=== PATIENT | female | born 1940 | race Caucasian/White ===

== ENCOUNTER 2018-02-18 05:34 | Inpatient (IN) | payer MEDICARE, BC ==
[~2018-02-18] VITALS: Ht 149.9 cm; Wt 45.2 kg
[~2018-02-18 05:34] MED LIST: ATRO1SOL11 RIGHT EYE; CALC500T37 PO; CHOL5000 PO; TIMO0.2517 LEFT EYE; TRAV0.00 LEFT EYE; TYLETAB34 PO; XARE15TA PO
[2018-02-18] MEDS ORDERED: ceFAZolin 2 GM PREMIX 50 ML IV SCH ×2 (06:30→15:00)
[2018-02-18] MEDS ORDERED: CHLORHEXIDINE GLUCONATE 4% SOLN 120 ML BTL TOPICAL SCH (06:30)
[2018-02-18] MEDS ORDERED: CHLORHEXIDINE GLUCONATE 2 % 1 PACK (2 CLOTHS) TOPICAL PRN (06:30)
[2018-02-18] MEDS ORDERED: VANCOMYCIN 1000 MG/NS 250 ML (for <70 kg) IV SCH ×2 (06:30)
[2018-02-18] MEDS ORDERED: POVIDONE IODINE 5% (ANTISEPSIS KIT) 4 APPLICATIONS EACH NARE PRN (06:30)
[2018-02-18] MEDS ORDERED: LACTATED RINGER'S 1000 ML IV PRN (06:30)
[2018-02-18] MEDS ORDERED: METOPROLOL TARTRATE 25 MG TAB PO PRN (06:30)
[2018-02-18] MEDS ORDERED: SODIUM CHLORID 0.9% 500 ML IV PRN (06:30)
[2018-02-18] MEDS ORDERED: MIDAZOLAM HCL 2 MG/2 ML VIAL ONE (07:32)
--- NOTE | 2018-02-18 08:12 | PD.RAD ---
Post Procedure Progress Note Pre Procedure Diagnosis: (1) Closed left hip fracture Post Procedure Diagnosis: (1) Closed left hip fracture Procedure Date: February 18, 2018 Supervising Radiologist: Tavo Cavazos Proceduralist/Assist: Suyapa Callahan, RT(R)(), Ray Morris RT(R) Anesthesia: Local, Analgesia, Conscious Sedation Plan of Activity Patient to Unit: SDS Patient Condition: Good See PACS Report for procedural detail/treatment Vascular-Venous Procedure Procedure 1 Procedure Site: Abdominal Procedure(s): Permanent IVC Filter Access Access Site(s): Right Jugular Vein Closure Site(s): Right manual pressure Findings: Infrarenal VenaTech filter Tavo Cavazos MD February 18, 2018 08:12
[2018-02-18] MEDS ORDERED: IOHEXOL 350 MG/ML 50 ML BTL (for RAD DIAG) IVCONTRAST ONE (08:25)
--- NOTE | 2018-02-18 08:35 | RADRPT ---
EXAM DATE/TIME: 02/18/2018 08:09 [facility] COMPARISON: No previous studies available for comparison. INDICATIONS : Patient with a history of DVT, needs IVC filter for pre-op left hip surgery. MEDICAL HISTORY : DVT GERD Arthritis SURGICAL HISTORY : Left femur rods Right eye surgery ENCOUNTER: Initial ACUITY: 1 week PAIN SCORE: 4/10 LOCATION: Left hip FLUORO TIME: 2.0 minutes IMAGE SERIES: 2 ACCESS SITE: Right Internal jugular vein SEDATION TIME: 30 minutes CONTRAST: 1.) 15 cc Omnipaque (iohexol) 350 MEDICATION(S): 1.) 1.5 mg midazolam (Versed) IV 2.) 75 mcg fentanyl (Sublimaze) IV DEVICE(S): 1.) Inferior vena cava B Koehler Venatech filter PROCEDURE : 1. Ultrasound-guided venipuncture. 2. Inferior venacavogram. 3. Inferior vena cava filter placement. 4. Conscious sedation with continuous EKG and oximetry monitoring. The risks, benefits and alternatives to the procedure were explained and verbal and written consent w as obtained. The site was prepped in sterile fashion. Full sterile technique was used, including ca p, mask, sterile gloves and gown and a large sterile sheet. Hand hygiene and 2% chlorhexidine and/or betadine/alcohol prep was utilized per protocol for cutaneous antisepsis. Sterile gel and sterile p robe cover were utilized for ultrasound guidance. The skin and subcutaneous tissues were infiltrated with local anesthetic solution. With ultrasound and fluoroscopic guidance the targeted vein was punctured and a vascular sheath was p laced. Inferior venacavogram was performed to demonstrate level of renal veins. No caval thrombus was identified. The prescribed filter was deployed in the infrarenal inferior vena cava. Following deplo yment the filter was identified in good position. Conscious sedation was performed with the prescribed dosages and duration as above in the presence of an independent trained radiology nurse to assist in the monitoring of the patient. EKG and oximetry remained stable throughout the procedure. The patient tolerated the procedure well and there were n o complications. The patient was sent to post anesthesia recovery in stable condition. CONCLUSION: Uncomplicated inferior vena cava filter placement as above. Tavo Cavazos MD on February 18, 2018 at 8:33 Board Certified Radiologist. This report was verified electronically.
[2018-02-18] MEDS ORDERED: HYDR-3583 PO (08:51)
[2018-02-18] MEDS ORDERED: XARE15TA PO (08:54)
[2018-02-18] MEDS ORDERED: VANCOMYCIN HCL 1000 MG VIAL ONE ×2 (09:06→09:08)
[2018-02-18] MEDS ORDERED: ceFAZolin INJ 1,000 MG VIAL ONE (09:07)
[2018-02-18] MEDS ORDERED: HEPARIN SODIUM - SQ 10,000 UNITS/ML VIAL ONE (09:08)
[2018-02-18] MEDS ORDERED: GENTAMICIN SULFATE 80 MG/2 ML VIAL ONE (09:08)
[2018-02-18] MEDS ORDERED: TRANEXAMIC ACID INJ 710 MG in SODIUM CHLORIDE 0.9% INJ 100 ML IV ONE (10:00)
[2018-02-18] MEDS ORDERED: diphenhydrAMINE HCL 25 MG CAP PO PRN (11:45)
[2018-02-18] MEDS ORDERED: NALOXONE HCL 0.4 MG/ML AMP IV PUSH PRN (11:45)
[2018-02-18] MEDS ORDERED: Post-op Orders (for Pharmacy) XX ONE (11:45)
[2018-02-18] MEDS ORDERED: ONDANSETRON ODT 4 MG TAB PO PRN (11:45)
--- NOTE | 2018-02-18 11:49 | PD.OP ---
cc: Eugene Suárez MD Operative Report Date of Surgery: February 18, 2018 Preoperative Diagnosis: Displaced left femoral neck fracture, retained hardware left hip Postoperative Diagnosis: Procedure: Removal of deep hardware, conversion to left hip replacement Anesthesia: General Surgeon: Eugene Suárez Zipper Trimmer(s): ALAN Rosario PA-C The surgical procedure was assisted by my physician laboratory assistant. My P.A. presence was necessary throughout this case for the manipulation and positioning of the surgical extremity. My P.A. was assisting me throughout the duration of this procedure. The skill set of a physician laboratory assistant was medically necessary to complete this procedure. During the surgical case the neurosurgical physician assistant was working at the back table and the physician laboratory assistant was directly assisting me. Operation and Findings: Weight bear as tolerated. DRAINS: 7-mm ELA drain. IMPLANTS USED BackTypeuy uSharelaim 75 mm x 20 mm proximal body, 15 mm x 190 mm stem with a size 28+1 metal head, 44 mm by centric cup DETAILS OF PROCEDURE: This patient has a 3 month history of hip pain. She was found to have a chronic left femoral neck fracture. She previously had a left proximal femur fracture treated with intramedullary nail fixation. I had a lengthy discussion regarding the risk and benefits of surgery with patient and her family. The patient wished to proceed with surgery and informed consent was obtained. Operative site was marked. Patient was brought to OR and placed on OR table. IV sedation and general anesthesia was administered by anesthesiologist. Patient was positioned lateral on the operating room table and was given IV antibiotics. Time-out procedure was performed. The operative hip and leg were prepped with alcohol followed by Hibiclens and draped in the usual sterile fashion. Clean Air Suite was used for this procedure. The procedure began with a 6-inch incision over the posterolateral thigh. Subcutaneous tissue was dissected with Bovie. The fascia of the iliotibial band was incised. Gluteus muscle was split in line with fibers. Charnley retractor was placed. At this point attention was turned towards removal of the intramedullary nail. The proximal screw was identified. Using the appropriate screwdriver from the universal screw removal set the proximal screw was removed. A 1 cm incision was made of the distal screw. The screw head was identified. At this point the proximal end of the nail is also identified. Bone was debrided around the proximal end of the nail. The insertion handle screwed into the femoral nail. The distal screw was now removed. The nail was now back slapped and removed. Fluoroscopy confirmed appropriate removal of hardware. The previous proximal femur fracture appeared to be healed. Next attention was turned towards exposure of the hip. Piriformis and external rotator muscles were identified and then released from the posterior femur. The hip capsule was incised and sutures were placed to help retract the capsule. At this point the femoral head and femoral neck fracture were identified. With soft tissue protected, oscillating saw was used to make a cut through the remaining femoral neck, the femoral head was now removed. The femoral head was sized and found to be size 44. At this point attention was turned towards preparation of the proximal femur. Retractors were placed around the proximal femur to allow for exposure. A box osteotome was used to remove the lateral cortex of the femoral neck. Canal finder was used to create a path down the canal. Next, the canal was sequentially reamed until there was an excellent fit. A long revision style stem was utilized because of patient's pre-existing osteoporosis with previous proximal femur insufficiency fracture. The size 15 reamer was left in place. The post was screwed into the reamer. The proximal segment was now reamed for a 20 mm body. A trial body was now placed onto the stem. A standard head and neck were placed. The hip was again reduced. Patient was noted to have a shallow acetabulum with some instability of her hip despite religious of leg length. At this point attention was turned back towards the acetabulum. The acetabulum was exposed. Soft tissue was retracted. The acetabulum was sequentially reamed up to size 44. The acetabulum was deepened to a 3 mm to improve the fit of the by bicentric femoral head. The trial femoral head was placed again. The hip was again reduced. Clinically leg lengths were equal. Patient had good range of motion with good stability. At this point the trial components were removed. A 15 mm x 190 mm stem was now opened. The stem was now impacted in the femoral shaft. Next the 75 mm x 20 mm proximal body was placed onto the stem. These 2 components were compressed appropriately. Care was taken to keep appropriate anteversion. The bolt was now placed proximally and tensioned appropriately. A 44 millimeter bicentric femoral head with +1 neck was now impacted onto the stem. The hip was reduced. Patient had good range of motion with good stability. Clinically leg lengths were equal. Fluoroscopy revealed well placed hip replacement. The wound was thoroughly irrigated. Hip capsule, external rotators, and iliotibial band was closed with #1 Vicryl. A drain was placed deep into the wound. Subcutaneous tissue was closed with 3-0 Vicryl and the skin was closed with drew and Dermabond skin closure. Dressings were applied. The patient was transferred to Recovery Room in stable condition. Eugene Suárez MD February 18, 2018 11:49
[2018-02-18] MEDS ORDERED: ONDANSETRON HCL 4 MG/2 ML VIAL IV PUSH ONE (12:00)
[2018-02-18] MEDS ORDERED: LIDOCAINE HCL 1% PF 5 ML SYRINGE OTHER ONE (12:00)
[2018-02-18] MEDS ORDERED: ROCURONIUM INJ 50 MG/5 ML SYRINGE IV PUSH ONE (12:00)
[2018-02-18] MEDS ORDERED: METOPROLOL TARTRATE 5 MG/5 ML VIAL IV ONE (12:00)
[2018-02-18] MEDS ORDERED: PROPOFOL 200 MG/20 ML AMP IV ONE (12:00)
[2018-02-18] MEDS ORDERED: ePHEDrine/NS 25 MG/5 ML SYRINGE IV ONE (12:00)
[2018-02-18] MEDS ORDERED: GLYCOPYRROLATE 1 MG/5 ML SYRINGE IV PUSH ONE (12:00)
[2018-02-18] MEDS ORDERED: PHENYLEPH/NS 1000 MCG/10 ML SYR IV ONE (12:00)
[2018-02-18] MEDS ORDERED: NEOSTIGMINE 5 MG/5 ML SYRINGE IV PUSH ONE (12:00)
--- NOTE | 2018-02-18 12:27 | PD.ORT.PN ---
Subjective Subjective Remarks POD 0 s/p removal of IMN with conversion to revision hemiarthroplasty stable in PACU. noted to have one pupil dilated when waking from anesthesia. Objective Vitals Vital Signs Date Time Temp Pulse Resp B/P (MAP) Pulse Ox O2 Delivery O2 Flow Rate FiO2 02/18/18 06:36 97.8 65 16 180/61 (100) 96 I/O 02/17/18 02/17/18 02/17/18 02/18/18 02/18/18 02/18/18 07:00 15:00 23:00 07:00 15:00 23:00 Intake Total 1400 ml Output Total 300 ml Balance 1100 ml Intake Other 1400 ml Output Estimated Blood Loss 300 ml Imaging Last 24 hours Impressions IVC Filter Placement X-Ray 02/18/18 0000 Signed Impressions: Service Date/Time: Sunday, February 18, 2018 08:09 - CONCLUSION: Uncomplicated inferior vena cava filter placement as above. Tavo Cavazos MD Objective Remarks LLE: dressings clean and dry. intact. +CKS Assessment & Plan Assessment and Plan 1) Left Periprosthetic Femoral Neck Fx s/p removal of IMN with conversion to revision stem hemiarthroplasty - POD 0 -50%WB -posterior hip precautions -knee brace while in bed -DVT prophylaxis. patient has diagnosed DVT and IVC filter placed this AM. restart home dose Xarelto 15mg -daily dressing changes with primapore on POD 2; perneo surgical mesh tape to remain on incision at all times -CM for rehab placement -f/u with Umer or JESSICA in 2 weeks -neuro and Hospitalist consulted for dilated pupil and medical mgmt Gurpreet Ny/Expanded Function Dental Assistant JESSICA February 18, 2018 12:26
[2018-02-18] MEDS ORDERED: DO NOT ADM ANY ANTICOAGULANT DRUGS PRN (12:30)
[2018-02-18] MEDS ORDERED: *morphine SULFATE 4 MG/ML PERIprocedure ONLY ONE ×2 (12:37→12:53)
--- NOTE | 2018-02-18 12:47 | RADRPT ---
EXAM DATE/TIME: 02/18/2018 11:17 [facility] COMPARISON: No previous studies available for comparison. INDICATIONS : Bi polar placement left hip and femur. MEDICAL HISTORY : None. SURGICAL HISTORY : None. ENCOUNTER: Subsequent ACUITY: 1 day PAIN SCORE: Non-responsive. LOCATION: Left Hip and femur. CONCLUSION: Fluoroscopic image during left hip arthroplasty including intra-medullary aomr left femur. Abram Craig MD on February 18, 2018 at 12:45 Board Certified Radiologist. This report was verified electronically.
[2018-02-18 13:01] LABS: HEMOGLOBIN 10.1 GM/DL (11.6-15.3)
[2018-02-18 14:00] VITALS: BP 113/56; PULSE 94; RESP 16; TEMP 97.3; O2SAT 99
--- NOTE | 2018-02-18 14:02 | RADRPT ---
EXAM DATE/TIME: 02/18/2018 12:59 [facility] COMPARISON: No previous studies available for comparison. INDICATIONS : Post-op left hip replacement. MEDICAL HISTORY : Arthritis. Gastroesophageal reflux disease. SURGICAL HISTORY : section. ENCOUNTER: Subsequent ACUITY: 1 day PAIN SCORE: Non-responsive. LOCATION: Left hip. FINDINGS: Patient is status post left hip arthroplasty. Components appear well-seated. There is subcutaneous ai r at the left hip region. Previous amor and screw fixation across the right proximal femur is noted. CONCLUSION: Postoperative changes left hip arthroplasty. Pedrito Knight MD on February 18, 2018 at 14:00 Board Certified Radiologist. This report was verified electronically.
[2018-02-18 14:58] LABS: BICARBONATE 26.2 MEQ/L (21.0-32.0); CALCIUM 7.7 MG/DL (8.5-10.1); CREATININE 0.57 MG/DL (0.50-1.00)
[2018-02-18 16:00] VITALS: BP 135/63; PULSE 96; RESP 16; TEMP 98; O2SAT 97
--- NOTE | 2018-02-18 16:22 | OTSOAPIP ---
TIME SESSION COMPLETED: 1530 TREATMENT TIME: 0 MINS. CHART REVIEWED. ATTEMPTED TO SEE FOR OT ASSESSMENT. PATIENT WAS ADMITTED TODAY WITH HIP FRACTURE AND UNDERWENT REMOVAL OF IM NAIL AND CONVERSION TO HEMIARTHROPLASTY OF THE HIP. PATIENT IS WAITING TO UNDERGO CT OF THE BRAIN DUE TO DILATED PUPIL. NEURO CONSULT PENDING. WILL WAIT UNTIL 02/19/2018. . Therapist: ANNIE MENDOZA OT/L Signature on file
--- NOTE | 2018-02-18 16:40 | RADRPT ---
EXAM DATE/TIME: 02/18/2018 16:08 [facility] COMPARISON: No previous studies available for comparison. INDICATIONS : Cephalgia. RADIATION DOSE: 34.24 CTDIvol (mGy) MEDICAL HISTORY : Cardiovascular disease. SURGICAL HISTORY : None. ENCOUNTER: Initial ACUITY: 1 day PAIN SCALE: 5/10 LOCATION: cranial TECHNIQUE: Multiple contiguous axial images were obtained of the head. Using automated exposure control and adj ustment of the mA and/or kV according to patient size, radiation dose was kept as low as reasonably a chievable to obtain optimal diagnostic quality images. DICOM format image data is available electro nically for review and comparison. FINDINGS: CEREBRUM: The ventricles are normal for age. No evidence of midline shift, mass lesion, hemorrhage or acute in farction. No extra-axial fluid collections are seen. POSTERIOR FOSSA: The cerebellum and brainstem are intact. The 4th ventricle is midline. The cerebellopontine angle i s unremarkable. EXTRACRANIAL: The visualized portion of the orbits is intact. SKULL: The calvaria is intact. No evidence of skull fracture. CONCLUSION: Normal examination for a patient of this age. Pedrito Knight MD on February 18, 2018 at 16:38 Board Certified Radiologist. This report was verified electronically.
--- NOTE | 2018-02-18 16:49 | PD.CONS ---
History of Present Illness Service Neurology Consult Requested By ortho Reason for Consult confusion Primary Care Physician Michelle Limon M.D. History of Present Illness 78-year-old female admitted for left hip surgery, with history of left femoral neck fracture. Postop apparently noted below but confused dilated right pupil neurology consult for further evaluation. Patient denies any headache fever chills. She had recent surgery for right glaucoma and has been using eyedrops which have not been dilating her eyes.. She denies any history of seizure or TIA or stroke. Review of Systems Except as stated in HPI: all other systems reviewed are Neg/and admit hp Past Family Social History Allergies: Coded Allergies: acetaminophen (Verified Allergy, Unknown, 02/18/18) ALLERGY PER PT SON oxycodone (Verified Allergy, Unknown, 02/18/18) ALLERGY PER PT SON Past Medical History Glaucoma History of right eye surgery 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 Osteoarthritis History of wrist fracture Hypertension GERD Past Surgical History Left femoral necks fracture repair Right eye surgery for cataract IVC filter placement today Bilateral femur amor Reported Medications Reported Meds & Active Scripts Active Xarelto (Rivaroxaban) 15 Mg Tab 15 Mg PO Q12HR 30 Days Hydrocodone-Acetaminophen 10-325 mg Tab 1 Tab PO Q4H PRN Reported Travatan Z Opth Drops (Travoprost) 0.004 % Soln 1 Drop LEFT EYE HS Atropine Opth Drops 1% Soln 1 Drop RIGHT EYE DAILY Timolol Maleate (Timolol Maleate (Ophth)) 0.25 % Lesvia 1 Drop LEFT EYE BID Calcium Ascorbate 500 Mg Tab 500 Mg PO DAILY Vitamin D3 (Cholecalciferol) 5,000 Unit Cap 5,000 Units PO DAILY Tylenol-Codeine #3 (Acetaminophen-Codeine) 300-30 mg Tab 1 Tab PO Q6H PRN Family History Denies any issues other than hypertension Social History Denies any tobacco, alcohol, or illicit Review of Systems All other ROS: ROS reviewed as documented in chart Past Family Social History Allergies: Coded Allergies: acetaminophen (Verified Allergy, Unknown, 02/18/18) ALLERGY PER PT SON oxycodone (Verified Allergy, Unknown, 02/18/18) ALLERGY PER PT SON Active Ordered Medications Current Medications Medications (Trade) Dose Ordered Sig/Carey Route Start Time Stop Time Status Last Admin Lactated Ringer's 1,000 ml @ 30 mls/hr Q24H PRN IV 02/18/18 06:30 02/21/18 06:29 02/18/18 06:43 Sodium Chloride 500 ml @ 30 mls/hr [id number] PRN IV 02/18/18 06:30 02/21/18 06:29 (Lopressor) 25 mg [employer] PRN PO 02/18/18 06:30 02/21/18 06:29 (Betadine 5% Antisepsis Kit) 1 applic [employer] PRN EACH NARE 02/18/18 06:30 02/21/18 06:29 02/18/18 06:42 (Chlorhexidine 2% Cloth) 3 pack [employer] PRN TOPICAL 02/18/18 06:30 02/21/18 06:29 02/18/18 06:42 (Hibiclens 4% Top Soln) 1 applic ONCE TOPICAL 02/18/18 06:30 02/21/18 06:29 02/18/18 06:43 Cefazolin Sodium/ Dextrose 50 ml @ 100 mls/hr [employer] IV 02/18/18 06:30 02/18/18 21:00 Vancomycin HCl 1000 mg/Sodium Chloride 250 ml @ 250 mls/hr [employer] IV 02/18/18 06:30 02/18/18 21:00 (Narcan Inj) 0.4 mg UNSCH PRN IV PUSH 02/18/18 11:45 (Benadryl) 25 mg Q6H PRN PO 02/18/18 11:45 (Xarelto) 10 mg Q24H PO 02/19/18 11:30 ([place] 7.5-325 Mg) 1 tab Q3H PRN PO 02/18/18 15:00 ([place] 10-325 Mg) 1 tab Q3H PRN PO 02/18/18 15:00 (Zofran Odt) 4 mg Q6H PRN PO 02/18/18 11:45 (Colace) 100 mg BID PO 02/19/18 21:00 Vancomycin HCl 1000 mg/Sodium Chloride 250 ml @ 250 mls/hr Q12H IV 02/18/18 22:00 02/18/18 22:59 ([facility] [place] [facility] [place] ALL NURSING DEPARTME... UNSCH PRN .XX 02/18/18 12:30 02/19/18 12:29 Cefazolin Sodium 2000 mg/Sodium Chloride 120 ml @ 240 mls/hr Q6H IV 02/18/18 16:00 02/19/18 04:29 Exam I&O / VS 02/18/18 02/18/18 02/19/18 15:00 23:00 07:00 Intake Total 1400 ml Output Total 800 ml Balance 600 ml Other 1400 ml Output Urine Total 500 ml Estimated Blood Loss 300 ml Vital Signs Date Time Temp Pulse Resp B/P (MAP) Pulse Ox O2 Delivery O2 Flow Rate FiO2 02/18/18 14:00 97.3 94 16 113/56 (75) 99 02/18/18 06:36 97.8 65 16 180/61 (100) 96 General: Alert and Oriented, No acute distress Eye: EOMI Respiratory: Non-labored respirations Neurologic: Alert, Oriented Psychiatric: Cooperative, Appropriate mood & affect Exam Comments lert, ox 3, able to name pcp, president, why she is in the hospital, follows, eomi, ou 4.5mm sluggish, os 3-2mm, face sym, no drift, left leg in a brace Review/Management Diagnosis/Plan: (1) Glaucoma ICD Codes: H40.9 - Unspecified glaucoma Status: Chronic Plan: Dilated right pupil secondary to eyedrops and recent glaucoma surgery (2) Encephalopathy ICD Codes: G93.40 - Encephalopathy, unspecified Status: Acute Plan: Appears resolved possibility of postop status, anesthesia (3) Closed left hip fracture ICD Codes: S72.002A - Fracture of unspecified part of neck of left femur, initial encounter for closed fracture Status: Acute Problem Qualifiers (1) Glaucoma: (2) Closed left hip fracture: Qualified Codes: S72.002A - Fracture of unspecified part of neck of left femur , initial encounter for closed fracture Yoni Cabrera MD February 18, 2018 16:49
--- NOTE | 2018-02-18 17:07 | PD.CONS ---
HPI [facility] Consult Requested By DR SOLIMAN Reason for Consult Help with positive DVT status post IVC filter Primary Care Physician Michelle Limon M.D. Diagnoses: History of Present Illness Patient is an 78-year-old female who underwent revision of a displaced left femoral neck fracture and retained hardware of left hip she underwent removal of the deep hardware and conversion to a left hip replacement today by Dr. Soliman. After the procedure, patient was noted to have one eye that was quite dilated and 1 that was normal patient was therefore sent for CAT scan of the head. Patient had a IVC filter placed today due to a lower extremity DVT I believe in the femoral region Patient will full anticoagulation tomorrow with Xarelto. We have been asked to help regarding this DVT and help with the Xarelto and anticoagulation Review of Systems Constitutional: DENIES: Diaphoretic episodes, Fatigue, Fever, Weight gain, Weight loss, Chills, Dizziness, Change in appetite, Night Sweats Endocrine: DENIES: Heat/cold intolerance, Polydipsia, Polyuria, Polyphagia Eyes: DENIES: Blurred vision, Diplopia, Eye inflammation, Eye pain, Vision loss , Photosensitivity, Double Vision Ears, nose, mouth, throat: DENIES: Tinnitus, Hearing loss, Vertigo, Nasal discharge, Oral lesions, Throat pain, Hoarseness, Ear Pain, Running Nose Respiratory: DENIES: Apneas, Cough, Snoring, Wheezing, Hemoptysis, Sputum production, Shortness of breath Cardiovascular: DENIES: Chest pain, Palpitations, Syncope, Dyspnea on Exertion , PND, Lower Extremity Edema, Orthopnea, Claudication Gastrointestinal: DENIES: Abdominal pain, Black stools, Bloody stools, Constipation, Diarrhea, Nausea Genitourinary: DENIES: Abnormal vaginal bleeding, Dysmenorrhea, Dyspareunia Musculoskeletal: COMPLAINS OF: Joint pain, DENIES: Muscle aches, Stiffness, Joint Swelling, Back pain, Neck pain Integumentary: DENIES: Abnormal pigmentation, Pruritus, Rash, Nail changes, Breast masses Hematologic/lymphatic: DENIES: Bruising, Lymphadenopathy Immunologic/allergic: DENIES: Eczema, Urticaria Neurologic: COMPLAINS OF: Abnormal gait, DENIES: Headache, Localized weakness, Paresthesias, Seizures, Speech Problems, Tremor, Poor Balance Psychiatric: DENIES: Anxiety, Confusion, Mood changes, Depression, Hallucinations, Agitation, Suicidal Ideation, Homicidal Ideation, Delusions Except as stated in HPI: all other systems reviewed are Neg Past Family Social History Allergies: Coded Allergies: acetaminophen (Verified Allergy, Unknown, 02/18/18) ALLERGY PER PT SON oxycodone (Verified Allergy, Unknown, 02/18/18) ALLERGY PER PT SON Past Medical History Glaucoma History of right eye surgery 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 Osteoarthritis History of wrist fracture Hypertension GERD Past Surgical History Left femoral necks fracture repair Right eye surgery for cataract IVC filter placement today Bilateral femur amor Reported Medications Reported Meds & Active Scripts Active Xarelto (Rivaroxaban) 15 Mg Tab 15 Mg PO Q12HR 30 Days Hydrocodone-Acetaminophen 10-325 mg Tab 1 Tab PO Q4H PRN Reported Travatan Z Opth Drops (Travoprost) 0.004 % Soln 1 Drop LEFT EYE HS Atropine Opth Drops 1% Soln 1 Drop RIGHT EYE DAILY Timolol Maleate (Timolol Maleate (Ophth)) 0.25 % Lesvia 1 Drop LEFT EYE BID Calcium Ascorbate 500 Mg Tab 500 Mg PO DAILY Vitamin D3 (Cholecalciferol) 5,000 Unit Cap 5,000 Units PO DAILY Tylenol-Codeine #3 (Acetaminophen-Codeine) 300-30 mg Tab 1 Tab PO Q6H PRN Active Ordered Medications Current Medications Lactated Ringer's 1,000 ml @ 30 mls/hr Q24H PRN IV SEE LABEL COMMENTS Last administered on 02/18/18at 06:43; Start 02/18/18 at 06:30; Stop 02/21/18 at 06:29 Sodium Chloride 500 ml @ 30 mls/hr [id number] PRN IV SEE LABEL COMMENTS; Start at 06:30; Stop 02/21/18 at 06:29 Metoprolol Tartrate (Lopressor) 25 mg AERODYNAMICS TEACHER PRN PO SEE LABEL COMMENTS; Start 02/18/18 at 06:30; Stop 02/21/18 at 06:29 Povidone Iodine (Betadine 5% Antisepsis Kit) 1 applic AERODYNAMICS TEACHER PRN EACH NARE SEE LABEL COMMENTS Last administered on 02/18/18at 06:42; Start 02/18/18 at 06:30 ; Stop 02/21/18 at 06:29 Chlorhexidine Gluconate (Chlorhexidine 2% Cloth) 3 pack AERODYNAMICS TEACHER PRN TOPICAL SEE LABEL COMMENTS Last administered on 02/18/18at 06:42; Start 02/18/18 at 06:30 ; Stop 02/21/18 at 06:29 Chlorhexidine Gluconate (Hibiclens 4% Top Soln) 1 applic ONCE TOPICAL Last administered on 02/18/18at 06:43; Start 02/18/18 at 06:30; Stop 02/21/18 at 06:29 Cefazolin Sodium/ Dextrose 50 ml @ 100 mls/hr AERODYNAM[employer] TEACHER IV ; Start 02/18/18 at 06:30; Stop 02/18/18 at 21:00 Vancomycin HCl 1000 mg/Sodium Chloride 250 ml @ 250 mls/hr AERODYNAMICS TEACHER IV ; Start 02/18/18 at 06:30; Stop 02/18/18 at 21:00 Fentanyl Citrate (fentaNYL INJ) 100 mcg STK-MED ONCE .ROUTE Last administered on 02/18/18at 08:05; Start 02/18/18 at 07:31; Stop 02/18/18 at 07:32; Status DC Midazolam HCl (Versed Inj) 2 mg STK-MED ONCE .ROUTE Last administered on at 08:05; Start 02/18/18 at 07:32; Stop 02/18/18 at 07:33; Status DC Iohexol (Omnipaque 350 Inj) 15 ml STK-MED ONCE IVCONTRAST Last administered on 02/18/18at 08:25; Start 02/18/18 at 08:25; Stop 02/18/18 at 08:26; Status DC Vancomycin HCl (Vancomycin Inj) 1,000 mg STK-MED ONCE .ROUTE Last administered on 02/18/18at 09:28; Start 02/18/18 at 09:06; Stop 02/18/18 at 09:07; Status DC Cefazolin Sodium (Ancef Inj) 1,000 mg STK-MED ONCE .ROUTE Last administered on 02/18/18at 09:27; Start 02/18/18 at 09:07; Stop 02/18/18 at 09:08; Status DC Gentamicin Sulfate (Gentamicin Inj) 240 mg STK-MED ONCE .ROUTE Last administered on 02/18/18at 10:00; Start 02/18/18 at 09:08; Stop 02/18/18 at 09:09 ; Status DC Vancomycin HCl (Vancomycin Inj) 1,000 mg STK-MED ONCE .ROUTE ; Start 02/18/18 at 09:08; Stop 02/18/18 at 09:09; Status DC Heparin Sodium (Porcine) (Heparin Inj) 30,000 units STK-MED ONCE .ROUTE ; Start 02/18/18 at 09:08; Stop 02/18/18 at 09:09; Status DC Tranexamic Acid 710 mg/Sodium Chloride 107.1 ml @ 200 mls/hr ONCE ONCE IV ; Start 02/18/18 at 10:00; Stop 02/18/18 at 10:32; Status DC Naloxone HCl (Narcan Inj) 0.4 mg UNSCH PRN IV PUSH RESPIRATORY RATE LESS THAN 10; Start 02/18/18 at 11:45 Diphenhydramine HCl (Benadryl) 25 mg Q6H PRN PO ITCHING; Start 02/18/18 at 11: 45 Cefazolin Sodium/ Dextrose 50 ml @ 100 mls/hr Q6H IV ; Start 02/18/18 at 15:00 ; Stop 02/19/18 at 03:29; Status Cancel Miscellaneous Information (Misc Post-op Orders (for Pharmacy)) STAT ONCE XX ; Start 02/18/18 at 11:45; Stop 02/18/18 at 11:46; Status DC Rivaroxaban (Xarelto) 10 mg Q24H PO ; Start 02/19/18 at 11:30 Acetaminophen/ Hydrocodone Bitart ([place]ora 7.5-325 Mg) 1 tab Q3H PRN PO PAIN 3<6 ; Start 02/18/18 at 15:00 Acetaminophen/ Hydrocodone Bitart ([place]ora 10-325 Mg) 1 tab Q3H PRN PO PAIN 6<10 ; Start 02/18/18 at 15:00 Ondansetron HCl (Zofran Odt) 4 mg Q6H PRN PO NAUSEA OR VOMITING; Start at 11:45 Docusate Sodium (Colace) 100 mg BID PO ; Start 02/19/18 at 21:00 Vancomycin HCl 1000 mg/Sodium Chloride 250 ml @ 250 mls/hr Q12H IV ; Start at 22:00; Stop 02/18/18 at 22:59 Morphine Sulfate (*morphine INJ PERIprocedure ONLY) 4 mg STK-MED ONCE .ROUTE Last administered on 02/18/18at 12:37; Start 02/18/18 at 12:37; Stop 02/18/18 at 12:38; Status DC Fentanyl Citrate (fentaNYL INJ) 100 mcg STK-MED ONCE .ROUTE ; Start 02/18/18 at 12:49; Stop 02/18/18 at 12:50; Status DC Fentanyl Citrate (fentaNYL INJ) 100 mcg STK-MED ONCE .ROUTE ; Start 02/18/18 at 12:49; Stop 02/18/18 at 12:50; Status DC Morphine Sulfate (*morphine INJ PERIprocedure ONLY) 4 mg STK-MED ONCE .ROUTE Last administered on 02/18/18at 12:53; Start 02/18/18 at 12:53; Stop 02/18/18 at 12:54; Status DC Miscellaneous Information ([facility] Nursing Information) ALL NURSING DEPARTME... UNSCH PRN .XX SEE LABEL COMMENTS; Start 02/18/18 at 12:30; Stop 02/19/18 at 12: 29 Cefazolin Sodium 2000 mg/Sodium Chloride 120 ml @ 240 mls/hr Q6H IV ; Start at 16:00; Stop 02/19/18 at 04:29 Family History Denies any issues other than hypertension Social History Denies any tobacco, alcohol, or illicit Physical Exam Vital Signs Vital Signs Date Time Temp Pulse Resp B/P (MAP) Pulse Ox O2 Delivery O2 Flow Rate FiO2 02/18/18 14:00 97.3 94 16 113/56 (75) 99 02/18/18 06:36 97.8 65 16 180/61 (100) 96 Physical Exam GENERAL: This is a well-nourished, well-developed patient, in no apparent distress. SKIN: No rashes, ecchymoses or lesions. Cool and dry. HEAD: Atraumatic. Normocephalic. No temporal or scalp tenderness. EYES: Pupils equal round and reactive RIGHT EYE IS DILATED. Extraocular motions intact. No scleral icterus. No injection or drainage. ENT: Nose without bleeding, purulent drainage or septal hematoma. Throat without erythema, tonsillar hypertrophy or exudate. Uvula midline. Airway patent. NECK: Trachea midline. No JVD or lymphadenopathy. Supple, nontender, no meningeal signs. RIGHT NECK DRESSED CARDIOVASCULAR: Regular rate and rhythm without murmurs, gallops, or rubs. RESPIRATORY: Clear to auscultation. Breath sounds equal bilaterally. No wheezes , rales, or rhonchi. GASTROINTESTINAL: Abdomen soft, non-tender, nondistended. No hepato-splenomegaly , or palpable masses. No guarding. MUSCULOSKELETAL: Extremities without clubbing, cyanosis, or edema. No joint tenderness, effusion, or edema noted. No calf tenderness. Negative Homans sign bilaterally. NEUROLOGICAL: Awake and alert. Cranial nerves II through XII intact. Motor and sensory grossly within normal limits. Five out of 5 muscle strength in all muscle groups. Normal speech. Laboratory Laboratory Tests Test 02/18/18 12:30 02/18/18 13:20 Hemoglobin 10.1 Hematocrit 30.0 Blood Urea Nitrogen 16 Creatinine 0.57 Random Glucose 137 Calcium Level 7.7 Sodium Level 141 Potassium Level 4.0 Chloride Level 108 Carbon Dioxide Level 26.2 Anion Gap 7 Estimat Glomerular Filtration Rate 102 Ammonia 32 Result Diagram: 02/18/18 1230 02/18/18 1320 Imaging Last Impressions Hip and Pelvis X-Ray 02/18/18 1132 Signed Impressions: Service Date/Time: Sunday, February 18, 2018 12:59 - CONCLUSION: Postoperative changes left hip arthroplasty. Pedrito Knight MD IVC Filter Placement X-Ray 02/18/18 0000 Signed Impressions: Service Date/Time: Sunday, February 18, 2018 08:09 - CONCLUSION: Uncomplicated inferior vena cava filter placement as above. Tavo Cavazos MD Femur X-Ray 02/18/18 0000 Signed Impressions: Service Date/Time: Sunday, February 18, 2018 11:17 - CONCLUSION: Fluoroscopic image during left hip arthroplasty including intra-medullary amor left femur. Abram Craig MD Assessment and Plan Assessment and Plan Status post left femoral neck fracture and repair with revision and removal of hardware and conversion to left hemiarthroplasty today Pain control per orthopedic Recent DVT status post IVC filter today start Xarelto tomorrow Uneven pupils possible CVA- CAT scan of head ordered pending results History of glaucoma History of cataract surgery on the right GERD by history which is diet controlled Hypertension not on any current medications Glaucoma by history continue on her drops as at home Code Status Full code Discussed Condition With RN and patient and family in charge Ja aBnerjee DO February 18, 2018 17:07
--- NOTE | 2018-02-18 17:26 | MG ---
cc: Yoni Cabrera MD, Mandeep MD EEG NUMBER [id number] HISTORY: Some confusion, noted to be drowsy during the recording. INTERPRETATION:l Posterior rhythm showing 4-5 Hz theta activity with admixed delta activity 10-30 microvolts. Other vertex waves transition into stage I sleep. No lateralizing features. During arousals background incremented up to 7-8 Hz. Limited driving with photic stimulation. Single lead EKG showing sinus rhythm. IMPRESSION: Mainly sleep electroencephalogram with brief normal wakefulness. Clinical correlation. MD RADHA Guerrero/ , 05:07 PM , 05:26 PM
[2018-02-18] MEDS: CEFAZOLIN INJ 2,000 MG in SODIUM CHLORIDE 0.9% INJ 100 ML IV SCH ×2 (17:59→22:37)
[2018-02-18] MEDS: ACETAMINOPHEN/HYDROcodone 325 MG/7.5 MG TAB PO PRN (19:38)
[2018-02-18 19:57] LABS: AUTOMATED NEUTROPHIL # 6.2 TH/MM3 (1.8-7.7); BASOPHIL % 0.4 % (0.0-2.0); HEMATOCRIT 26.9 % (35.0-46.0); LYMPH % 12.5 % (9.0-44.0); MEAN CELL VOLUME 93.9 FL (80.0-100.0); MEAN CORPUSCULAR HEMOGLOBIN 31.3 PG (27.0-34.0); MEAN CORPUSCULAR HGB CONC 33.4 % (32.0-36.0); MEAN PLATELET VOLUME 7.7 FL (7.0-11.0); MONO % 9.1 % (0.0-8.0); MONOCYTE # 0.7 TH/MM3 (0-0.9); PLATELET COUNT 279 TH/MM3 (150-450); RED BLOOD COUNT 2.87 MIL/MM3 (4.00-5.30); RED CELL DISTRIBUTION WIDTH 13.8 % (11.6-17.2); WHITE BLOOD COUNT 7.9 TH/MM3 (4.0-11.0)
[2018-02-18 20:00] VITALS: BP 118/51; PULSE 108; RESP 18; TEMP 97.2; O2SAT 100
[2018-02-18] MEDS ORDERED: VANCOMYCIN INJ 1,000 MG in SODIUM CHLOR 0.9% 250 ML INJ 250 ML IV SCH (22:00)
[2018-02-19] VITALS (9 sets, daily range): BP systolic 99–126; BP diastolic 50–62; PULSE 96–116; RESP 16–18; TEMP 97.2–98.7; O2SAT 95–99
[2018-02-19] MEDS: ACETAMINOPHEN/HYDROcodone 325 MG/10 MG TAB PO PRN ×7 (00:07→23:39)
[2018-02-19] MEDS: CEFAZOLIN INJ 2,000 MG in SODIUM CHLORIDE 0.9% INJ 100 ML IV SCH (04:08)
[2018-02-19 06:27] LABS: AUTOMATED NEUTROPHIL # 3.4 TH/MM3 (1.8-7.7); BASOPHIL % 0.6 % (0.0-2.0); EOSINOPHIL % 0.8 % (0.0-4.0); HEMATOCRIT 22.3 % (35.0-46.0); HEMOGLOBIN 7.6 GM/DL (11.6-15.3); LYMPH % 31.9 % (9.0-44.0); LYMPHOCYTE # 1.9 TH/MM3 (1.0-4.8); MEAN CELL VOLUME 94.2 FL (80.0-100.0); MEAN CORPUSCULAR HEMOGLOBIN 32.2 PG (27.0-34.0); MEAN CORPUSCULAR HGB CONC 34.1 % (32.0-36.0); MEAN PLATELET VOLUME 7.7 FL (7.0-11.0); MONO % 10.2 % (0.0-8.0); MONOCYTE # 0.6 TH/MM3 (0-0.9); NEUT % 56.5 % (16.0-70.0); PLATELET COUNT 235 TH/MM3 (150-450); RED BLOOD COUNT 2.37 MIL/MM3 (4.00-5.30); RED CELL DISTRIBUTION WIDTH 13.6 % (11.6-17.2)
[2018-02-19 06:51] LABS: ALBUMIN 2.7 GM/DL (3.4-5.0); AST (GOT) 22 U/L (15-37); BICARBONATE 26.6 MEQ/L (21.0-32.0); CALCIUM 7.7 MG/DL (8.5-10.1); CHLORIDE 103 MEQ/L (98-107); CREATININE 0.78 MG/DL (0.50-1.00); GLOMERULAR FILTRATION RATE 71 ML/MIN (>89); GLUCOSE,RANDOM 107 MG/DL (74-106); MAGNESIUM 1.8 MG/DL (1.5-2.5); PHOSPHORUS 3.4 MG/DL (2.5-4.9); SODIUM (NA) 138 MEQ/L (136-145)
[2018-02-19 07:00] LABS: ALKALINE PHOSPHATASE 38 U/L (45-117); FREE T4 1.39 NG/DL (0.76-1.46); TOTAL BILIRUBIN ADULT 0.6 MG/DL (0.2-1.0)
[2018-02-19 07:26] LABS: BLOOD UREA NITROGEN 17 MG/DL (7-18)
[2018-02-19 07:37] LABS: ALT (GPT) 13 U/L (10-53)
--- NOTE | 2018-02-19 09:23 | HHI.PR ---
Review/Management Diagnosis/Plan: (1) Encephalopathy ICD Codes: G93.40 - Encephalopathy, unspecified Status: Acute Plan: Appears resolved possibility of postop status, anesthesia EKG normal CT brain no acute abnormalities Neurologically stable (2) Glaucoma ICD Codes: H40.9 - Unspecified glaucoma Status: Chronic Plan: Dilated right pupil secondary to eyedrops and recent glaucoma surgery (3) Closed left hip fracture ICD Codes: S72.002A - Fracture of unspecified part of neck of left femur, initial encounter for closed fracture Status: Acute Subjective Subjective Comments No acute events reported No headache No chest pain No dyspnea Active Medications Current Medications Medications (Trade) Dose Ordered Sig/Carey Route Start Time Stop Time Status Last Admin Lactated Ringer's 1,000 ml @ 30 mls/hr Q24H PRN IV 02/18/18 06:30 02/21/18 06:29 02/18/18 06:43 Sodium Chloride 500 ml @ 30 mls/hr [id number] PRN IV 02/18/18 06:30 02/21/18 06:29 (Lopressor) 25 mg CASH POSTER PRN PO 02/18/18 06:30 02/21/18 06:29 (Betadine 5% Antisepsis Kit) 1 applic CASH POSTER PRN EACH NARE 02/18/18 06:30 02/21/18 06:29 02/18/18 06:42 (Chlorhexidine 2% Cloth) 3 pack CASH POSTER PRN TOPICAL 02/18/18 06:30 02/21/18 06:29 02/18/18 06:42 (Hibiclens 4% Top Soln) 1 applic ONCE TOPICAL 02/18/18 06:30 02/21/18 06:29 02/18/18 06:43 (Narcan Inj) 0.4 mg UNSCH PRN IV PUSH 02/18/18 11:45 (Benadryl) 25 mg Q6H PRN PO 02/18/18 11:45 (Xarelto) 10 mg Q24H PO 02/19/18 11:30 ([place] 7.5-325 Mg) 1 tab Q3H PRN PO 02/18/18 15:00 02/18/18 19:38 ([place] 10-325 Mg) 1 tab Q3H PRN PO 02/18/18 15:00 02/19/18 06:04 (Zofran Odt) 4 mg Q6H PRN PO 02/18/18 11:45 02/18/18 19:38 (Colace) 100 mg BID PO 02/19/18 21:00 ([facility] [place] Nursing Information) ALL NURSING DEPARTME... UNSCH PRN .XX 02/18/18 12:30 02/19/18 12:29 Allergies Allergies Coded Allergies acetaminophen (Verified Allergy, Unknown, 02/18/18) oxycodone (Verified Allergy, Unknown, 02/18/18) Review of Systems All other ROS: ROS reviewed as documented in chart Exam I&O / VS Vital Signs Date Time Temp Pulse Resp B/P (MAP) Pulse Ox O2 Delivery O2 Flow Rate FiO2 02/19/18 04:00 97.7 98 18 111/53 (72) 99 02/19/18 00:01 97.2 105 18 115/56 (75) 98 02/18/18 20:00 97.2 108 18 118/51 (73) 100 02/18/18 16:00 98.0 96 16 135/63 (87) 97 02/18/18 14:00 97.3 94 16 113/56 (75) 99 02/18/18 13:25 69 16 114/66 (82) 100 Nasal Cannula 2 02/18/18 13:00 61 16 128/55 (79) 100 Nasal Cannula 2 02/18/18 12:45 76 16 140/66 (90) 100 Nasal Cannula 2 02/18/18 12:30 62 16 149/65 (93) 100 Nasal Cannula 2 02/18/18 12:21 96.5 62 16 81/49 (60) 99 Nasal Cannula 2 General: Alert and Oriented, No acute distress Eye: EOMI Respiratory: Non-labored respirations Neurologic: Alert, Oriented Psychiatric: Cooperative, Appropriate mood & affect Exam Comments alert, ox 3, able to name pcp, recognizes me from yesterday, no aphasia pleasant follows, eomi, ou 4.5mm sluggish, os 3-2mm, face sym, no drift, left leg in a brace Objective Micro and Labs Laboratory Tests Test 02/18/18 12:30 02/18/18 13:20 02/18/18 19:32 02/19/18 05:50 Hemoglobin 10.1 9.0 7.6 Hematocrit 30.0 26.9 22.3 Blood Urea Nitrogen 16 17 Creatinine 0.57 0.78 Random Glucose 137 107 Calcium Level 7.7 7.7 Sodium Level 141 138 Potassium Level 4.0 4.3 Chloride Level 108 103 Carbon Dioxide Level 26.2 26.6 Anion Gap 7 8 Estimat Glomerular Filtration Rate 102 71 Ammonia 32 White Blood Count 7.9 6.0 Red Blood Count 2.87 2.37 Mean Corpuscular Volume 93.9 94.2 Mean Corpuscular Hemoglobin 31.3 32.2 Mean Corpuscular Hemoglobin Concent 33.4 34.1 Red Cell Distribution Width 13.8 13.6 Platelet Count 279 235 Mean Platelet Volume 7.7 7.7 Neutrophils (%) (Auto) 78.0 56.5 Lymphocytes (%) (Auto) 12.5 31.9 Monocytes (%) (Auto) 9.1 10.2 Eosinophils (%) (Auto) 0.0 0.8 Basophils (%) (Auto) 0.4 0.6 Neutrophils # (Auto) 6.2 3.4 Lymphocytes # (Auto) 1.0 1.9 Monocytes # (Auto) 0.7 0.6 Eosinophils # (Auto) 0.0 0.0 Basophils # (Auto) 0.0 0.0 CBC Comment DIFF FINAL DIFF FINAL Differential Comment Total Protein 5.0 Albumin 2.7 Phosphorus Level 3.4 Magnesium Level 1.8 Alkaline Phosphatase 38 Aspartate Amino Transf (AST/SGOT) 22 Alanine Aminotransferase (ALT/SGPT) 13 Total Bilirubin 0.6 Free Thyroxine 1.39 Thyroid Stimulating Hormone 3rd Gen 3.190 Problem Qualifiers (1) Glaucoma: (2) Closed left hip fracture: Qualified Codes: S72.002A - Fracture of unspecified part of neck of left femur , initial encounter for closed fracture Yoni Cabrera MD February 19, 2018 09:23
[2018-02-19] MEDS ORDERED: SODIUM CHLOR 0.9% 250 ML INJ 250 ML IV ONE (10:45)
[2018-02-19] MEDS ORDERED: FUROSEMIDE 20 MG/2 ML VIAL IV PUSH ONE (10:45)
[2018-02-19] MEDS: RIVAROXABAN 10 MG TAB PO SCH (11:31)
[2018-02-19] MEDS ORDERED: ATROPINE SULFATE 1% OPHT SOLN 2 ML BTL RIGHT EYE SCH (13:00)
[2018-02-19] MEDS: TIMOLOL MALEATE 0.25% OPHT SOLN 5 ML BTL LEFT EYE SCH ×2 (15:32→20:14)
[2018-02-19] MEDS: ATROPINE SULFATE 1% OPHT SOLN 5 ML BTL RIGHT EYE SCH (15:33)
--- NOTE | 2018-02-19 16:05 | PD.ORT.PN ---
Subjective Subjective Remarks Patient comfortable. Pain controlled. Alert & oriented x 3. Patient states she takes medication for dilation for right eye. Objective Vitals Vital Signs Date Time Temp Pulse Resp B/P (MAP) Pulse Ox O2 Delivery O2 Flow Rate FiO2 02/19/18 12:00 98.1 96 16 126/62 (83) 98 02/19/18 11:40 99 21 02/19/18 08:00 97.9 104 16 108/50 (69) 95 02/19/18 04:00 97.7 98 18 111/53 (72) 99 02/19/18 00:01 97.2 105 18 115/56 (75) 98 02/18/18 20:00 97.2 108 18 118/51 (73) 100 I/O 02/18/18 02/18/18 02/18/18 02/19/18 02/19/18 02/19/18 07:00 15:00 23:00 07:00 15:00 23:00 Intake Total 1400 ml 610 ml Output Total 800 ml 300 ml Balance 600 ml 310 ml Intake Oral 360 ml IV Total 250 ml Other 1400 ml Output Urine Total 500 ml 300 ml Estimated Blood Loss 300 ml # Voids 2 # Bowel Movements 0 Result Diagram: 02/19/18 0550 02/19/18 0550 Imaging Last 24 hours Impressions IVC Filter Placement X-Ray 02/18/18 0000 Signed Impressions: Service Date/Time: Sunday, February 18, 2018 08:09 - CONCLUSION: Uncomplicated inferior vena cava filter placement as above. Tavo Cavazos MD Objective Remarks LLE: dressings clean and dry. intact. +CKS Assessment & Plan Assessment and Plan 1) Left Periprosthetic Femoral Neck Fx s/p removal of IMN with conversion to revision stem hemiarthroplasty - POD 1 - hgb 7.6 patient is scheduled for blood transfusion today -50%WB -posterior hip precautions -knee brace while in bed -DVT prophylaxis. patient has diagnosed DVT and IVC filter placed this AM. restart home dose Xarelto 15mg -daily dressing changes with primapore on POD 2; perneo surgical mesh tape to remain on incision at all times -CM for rehab placement -f/u with [facility] or [facility] in 2 weeks Cheo Soler February 19, 2018 16:05
--- NOTE | 2018-02-19 18:02 | HHI.PR ---
Subjective Remarks Patient sitting up in chair reports feeling fatigued, hgb 7.6 this AM Objective Vitals Vital Signs Date Time Temp Pulse Resp B/P (MAP) Pulse Ox O2 Delivery O2 Flow Rate FiO2 02/19/18 12:00 98.1 96 16 126/62 (83) 98 02/19/18 11:40 99 21 02/19/18 08:00 97.9 104 16 108/50 (69) 95 02/19/18 04:00 97.7 98 18 111/53 (72) 99 02/19/18 00:01 97.2 105 18 115/56 (75) 98 02/18/18 20:00 97.2 108 18 118/51 (73) 100 I/O 02/18/18 02/18/18 02/18/18 02/19/18 02/19/18 02/19/18 07:00 15:00 23:00 07:00 15:00 23:00 Intake Total 1400 ml 610 ml Output Total 800 ml 300 ml Balance 600 ml 310 ml Intake Oral 360 ml IV Total 250 ml Other 1400 ml Output Urine Total 500 ml 300 ml Estimated Blood Loss 300 ml # Voids 2 # Bowel Movements 0 Result Diagram: 02/19/18 0550 02/19/18 0550 Other Results Laboratory Tests Test 02/18/18 12:30 02/18/18 13:20 02/18/18 19:32 02/19/18 05:50 Hemoglobin 10.1 GM/DL 9.0 GM/DL 7.6 GM/DL Hematocrit 30.0 % 26.9 % 22.3 % Blood Urea Nitrogen 16 MG/DL 17 MG/DL Creatinine 0.57 MG/DL 0.78 MG/DL Random Glucose 137 MG/DL 107 MG/DL Calcium Level 7.7 MG/DL 7.7 MG/DL Sodium Level 141 MEQ/L 138 MEQ/L Potassium Level 4.0 MEQ/L 4.3 MEQ/L Chloride Level 108 MEQ/L 103 MEQ/L Carbon Dioxide Level 26.2 MEQ/L 26.6 MEQ/L Anion Gap 7 MEQ/L 8 MEQ/L Estimat Glomerular Filtration Rate 102 ML/MIN 71 ML/MIN Ammonia 32 MCMOL/L White Blood Count 7.9 TH/MM3 6.0 TH/MM3 Red Blood Count 2.87 MIL/MM3 2.37 MIL/MM3 Mean Corpuscular Volume 93.9 FL 94.2 FL Mean Corpuscular Hemoglobin 31.3 PG 32.2 PG Mean Corpuscular Hemoglobin Concent 33.4 % 34.1 % Red Cell Distribution Width 13.8 % 13.6 % Platelet Count 279 TH/MM3 235 TH/MM3 Mean Platelet Volume 7.7 FL 7.7 FL Neutrophils (%) (Auto) 78.0 % 56.5 % Lymphocytes (%) (Auto) 12.5 % 31.9 % Monocytes (%) (Auto) 9.1 % 10.2 % Eosinophils (%) (Auto) 0.0 % 0.8 % Basophils (%) (Auto) 0.4 % 0.6 % Neutrophils # (Auto) 6.2 TH/MM3 3.4 TH/MM3 Lymphocytes # (Auto) 1.0 TH/MM3 1.9 TH/MM3 Monocytes # (Auto) 0.7 TH/MM3 0.6 TH/MM3 Eosinophils # (Auto) 0.0 TH/MM3 0.0 TH/MM3 Basophils # (Auto) 0.0 TH/MM3 0.0 TH/MM3 CBC Comment DIFF FINAL DIFF FINAL Differential Comment Total Protein 5.0 GM/DL Albumin 2.7 GM/DL Phosphorus Level 3.4 MG/DL Magnesium Level 1.8 MG/DL Alkaline Phosphatase 38 U/L Aspartate Amino Transf (AST/SGOT) 22 U/L Alanine Aminotransferase (ALT/SGPT) 13 U/L Total Bilirubin 0.6 MG/DL Free Thyroxine 1.39 NG/DL Thyroid Stimulating Hormone 3rd Gen 3.190 uIU/ML Imaging Last Impressions Hip and Pelvis X-Ray 02/18/18 1132 Signed Impressions: Service Date/Time: Sunday, February 18, 2018 12:59 - CONCLUSION: Postoperative changes left hip arthroplasty. Pedrito Knight MD IVC Filter Placement X-Ray 02/18/18 0000 Signed Impressions: Service Date/Time: Sunday, February 18, 2018 08:09 - CONCLUSION: Uncomplicated inferior vena cava filter placement as above. Tavo Cavazos MD Head CT 02/18/18 0000 Signed Impressions: Service Date/Time: Sunday, February 18, 2018 16:08 - CONCLUSION: Normal examination for a patient of this age. Pedrito Knight MD Femur X-Ray 02/18/18 0000 Signed Impressions: Service Date/Time: Sunday, February 18, 2018 11:17 - CONCLUSION: Fluoroscopic image during left hip arthroplasty including intra-medullary amor left femur. Abram Craig MD Objective Remarks GENERAL: This is a well-nourished, well-developed patient, appears pale CARDIOVASCULAR: Regular rate and rhythm RESPIRATORY: Clear to auscultation. Breath sounds equal bilaterally. GASTROINTESTINAL: Abdomen soft, non-tender, nondistended. Normal active bowel sounds MUSCULOSKELETAL: Extremities without clubbing, cyanosis, or edema. Post-op dressing dry and intact NEURO: Alert & Oriented x4 to person, place, time, situation. Moves all ext x4 A/P Assessment and Plan Patient is an 78-year-old female who underwent revision of a displaced left femoral neck fracture and retained hardware of left hip she underwent removal of the deep hardware and conversion to a left hip replacement today by Dr. Owusu, 02/18/18. After the procedure, patient was noted to have one eye that was quite dilated and one that was normal patient. Patient has dilated right pupil secondary to eyedrops and recent glaucoma surgery Patient had a IVC filter placed 02/18/18 due to a lower extremity DVT Patient also on Xarelto. Patient sitting up in chair reports feeling fatigued, hgb 7.6 this AM Status post left femoral neck fracture and repair with revision and removal of hardware and conversion to left hemiarthroplasty today Pain control per orthopedic Recent DVT status post IVC filter 02/18/18 start Xarelto 02/19 Uneven pupils Also followed by Neurology. Per neurology patient has dilated right pupil secondary to eyedrops and recent glaucoma surgery CT scan of head Normal examination for a patient of this age History of glaucoma History of cataract surgery on the right GERD by history which is diet controlled Hypertension not on any current medications Post-op anemia hgb 7.6 this AM transfuse 1 unit PRBC today Lasix 20 mg IV after transfusion CBC in AM Supervising physician Libertad Martínez February 19, 2018 18:02
[2018-02-19] MEDS: LATANOPROST 0.005% OPHT SOLN 2.5 ML BTL LEFT EYE SCH (20:18)
[2018-02-19] MEDS: DOCUSATE SODIUM 100 MG CAP PO SCH (20:22)
[2018-02-20] VITALS (7 sets, daily range): BP systolic 113–135; BP diastolic 53–64; PULSE 83–95; RESP 16–18; TEMP 97–98.4; O2SAT 93–99
[2018-02-20] MEDS: ACETAMINOPHEN/HYDROcodone 325 MG/10 MG TAB PO PRN ×3 (04:22→11:42)
[2018-02-20] MEDS: DOCUSATE SODIUM 100 MG CAP PO SCH ×2 (08:36→20:51)
[2018-02-20] MEDS: ATROPINE SULFATE 1% OPHT SOLN 5 ML BTL RIGHT EYE SCH (08:37)
[2018-02-20] MEDS: TIMOLOL MALEATE 0.25% OPHT SOLN 5 ML BTL LEFT EYE SCH ×2 (08:37→20:51)
[2018-02-20] MEDS: RIVAROXABAN 10 MG TAB PO SCH (11:41)
--- NOTE | 2018-02-20 12:33 | PD.ORT.PN ---
Subjective Subjective Remarks Patient comfortable. Pain controlled. NAD. Objective Vitals Vital Signs Date Time Temp Pulse Resp B/P (MAP) Pulse Ox O2 Delivery O2 Flow Rate FiO2 02/20/18 08:00 98.4 95 16 122/58 (79) 98 02/20/18 04:00 98.3 94 18 113/53 (73) 94 02/19/18 23:40 98.3 108 17 120/60 98 02/19/18 21:02 98.4 110 18 99/51 96 02/19/18 20:30 98.4 116 18 105/53 95 02/19/18 16:00 98.7 104 16 116/59 (78) 97 I/O 02/19/18 02/19/18 02/19/18 02/20/18 02/20/18 02/20/18 07:00 15:00 23:00 07:00 15:00 23:00 Intake Total 610 ml 600 ml 450 ml Output Total 300 ml 600 ml Balance 310 ml 600 ml -150 ml Intake Oral 360 ml 600 ml IV Total 250 ml Packed Cells 400 ml Blood Product IV Normal Saline Flush 50 ml Output Urine Total 300 ml 600 ml # Voids 2 # Bowel Movements 0 Result Diagram: 02/19/18 0550 02/19/18 0550 Imaging Last 24 hours Impressions IVC Filter Placement X-Ray 02/18/18 0000 Signed Impressions: Service Date/Time: Sunday, February 18, 2018 08:09 - CONCLUSION: Uncomplicated inferior vena cava filter placement as above. Tavo Cavazos MD Objective Remarks LLE: dressings clean and dry. intact. +CKS Assessment & Plan Assessment and Plan 1) Left Periprosthetic Femoral Neck Fx s/p removal of IMN with conversion to revision stem hemiarthroplasty - POD 2 -50%WB -posterior hip precautions -knee brace while in bed -DVT prophylaxis. patient has diagnosed DVT and IVC filter placed this AM. restart home dose Xarelto 15mg -daily dressing changes with primapore on POD 2; perneo surgical mesh tape to remain on incision at all times -orthopedically stable for discharge -CM for rehab placement -f/u with Umer or JESSICA in 2 weeks Cheo Soler February 20, 2018 12:33
[2018-02-20 12:43] LABS: HEMOGLOBIN A1C 5.3 % (4.3-6.0)
[2018-02-20 13:13] LABS: AUTOMATED NEUTROPHIL # 5.7 TH/MM3 (1.8-7.7); BASOPHIL % 0.6 % (0.0-2.0); EOSINOPHIL # 0.1 TH/MM3 (0-0.4); EOSINOPHIL % 1.4 % (0.0-4.0); HEMATOCRIT 27.4 % (35.0-46.0); HEMOGLOBIN 9.4 GM/DL (11.6-15.3); LYMPH % 21.1 % (9.0-44.0); LYMPHOCYTE # 1.8 TH/MM3 (1.0-4.8); MEAN CELL VOLUME 91.6 FL (80.0-100.0); MEAN CORPUSCULAR HEMOGLOBIN 31.5 PG (27.0-34.0); MEAN CORPUSCULAR HGB CONC 34.4 % (32.0-36.0); MEAN PLATELET VOLUME 7.9 FL (7.0-11.0); MONOCYTE # 0.9 TH/MM3 (0-0.9); NEUT % 66.9 % (16.0-70.0); PLATELET COUNT 238 TH/MM3 (150-450); RED BLOOD COUNT 2.99 MIL/MM3 (4.00-5.30); RED CELL DISTRIBUTION WIDTH 15.2 % (11.6-17.2); WHITE BLOOD COUNT 8.6 TH/MM3 (4.0-11.0)
[2018-02-20] MEDS: ACETAMINOPHEN/HYDROcodone 325 MG/7.5 MG TAB PO PRN ×3 (14:54→21:17)
--- NOTE | 2018-02-20 15:54 | HHI.PR ---
Subjective Remarks Patient reports feeling better after the transfusion yesterday Offers no complaints at this time Objective Vitals Vital Signs Date Time Temp Pulse Resp B/P (MAP) Pulse Ox O2 Delivery O2 Flow Rate FiO2 02/20/18 12:42 18 02/20/18 12:00 97.7 83 16 121/58 (79) 99 02/20/18 08:30 95 21 02/20/18 08:00 98.4 95 16 122/58 (79) 98 02/20/18 04:00 98.3 94 18 113/53 (73) 94 02/19/18 23:40 98.3 108 17 120/60 98 02/19/18 21:02 98.4 110 18 99/51 96 02/19/18 20:30 98.4 116 18 105/53 95 02/19/18 16:00 98.7 104 16 116/59 (78) 97 I/O 02/19/18 02/19/18 02/19/18 02/20/18 02/20/18 02/20/18 07:00 15:00 23:00 07:00 15:00 23:00 Intake Total 610 ml 600 ml 450 ml Output Total 300 ml 600 ml Balance 310 ml 600 ml -150 ml Intake Oral 360 ml 600 ml IV Total 250 ml Packed Cells 400 ml Blood Product IV Normal Saline Flush 50 ml Output Urine Total 300 ml 600 ml # Voids 2 # Bowel Movements 0 Result Diagram: 02/20/18 1249 02/19/18 0550 Other Results Laboratory Tests Test 02/18/18 12:30 02/18/18 13:20 02/18/18 19:32 02/19/18 05:50 Hemoglobin 10.1 GM/DL 9.0 GM/DL 7.6 GM/DL Hematocrit 30.0 % 26.9 % 22.3 % Blood Urea Nitrogen 16 MG/DL 17 MG/DL Creatinine 0.57 MG/DL 0.78 MG/DL Random Glucose 137 MG/DL 107 MG/DL Calcium Level 7.7 MG/DL 7.7 MG/DL Sodium Level 141 MEQ/L 138 MEQ/L Potassium Level 4.0 MEQ/L 4.3 MEQ/L Chloride Level 108 MEQ/L 103 MEQ/L Carbon Dioxide Level 26.2 MEQ/L 26.6 MEQ/L Anion Gap 7 MEQ/L 8 MEQ/L Estimat Glomerular Filtration Rate 102 ML/MIN 71 ML/MIN Ammonia 32 MCMOL/L White Blood Count 7.9 TH/MM3 6.0 TH/MM3 Red Blood Count 2.87 MIL/MM3 2.37 MIL/MM3 Mean Corpuscular Volume 93.9 FL 94.2 FL Mean Corpuscular Hemoglobin 31.3 PG 32.2 PG Mean Corpuscular Hemoglobin Concent 33.4 % 34.1 % Red Cell Distribution Width 13.8 % 13.6 % Platelet Count 279 TH/MM3 235 TH/MM3 Mean Platelet Volume 7.7 FL 7.7 FL Neutrophils (%) (Auto) 78.0 % 56.5 % Lymphocytes (%) (Auto) 12.5 % 31.9 % Monocytes (%) (Auto) 9.1 % 10.2 % Eosinophils (%) (Auto) 0.0 % 0.8 % Basophils (%) (Auto) 0.4 % 0.6 % Neutrophils # (Auto) 6.2 TH/MM3 3.4 TH/MM3 Lymphocytes # (Auto) 1.0 TH/MM3 1.9 TH/MM3 Monocytes # (Auto) 0.7 TH/MM3 0.6 TH/MM3 Eosinophils # (Auto) 0.0 TH/MM3 0.0 TH/MM3 Basophils # (Auto) 0.0 TH/MM3 0.0 TH/MM3 CBC Comment DIFF FINAL DIFF FINAL Differential Comment Total Protein 5.0 GM/DL Albumin 2.7 GM/DL Phosphorus Level 3.4 MG/DL Magnesium Level 1.8 MG/DL Alkaline Phosphatase 38 U/L Aspartate Amino Transf (AST/SGOT) 22 U/L Alanine Aminotransferase (ALT/SGPT) 13 U/L Total Bilirubin 0.6 MG/DL Hemoglobin A1c 5.3 % Free Thyroxine 1.39 NG/DL Thyroid Stimulating Hormone 3rd Gen 3.190 uIU/ML Test 02/20/18 12:49 White Blood Count 8.6 TH/MM3 Red Blood Count 2.99 MIL/MM3 Hemoglobin 9.4 GM/DL Hematocrit 27.4 % Mean Corpuscular Volume 91.6 FL Mean Corpuscular Hemoglobin 31.5 PG Mean Corpuscular Hemoglobin Concent 34.4 % Red Cell Distribution Width 15.2 % Platelet Count 238 TH/MM3 Mean Platelet Volume 7.9 FL Neutrophils (%) (Auto) 66.9 % Lymphocytes (%) (Auto) 21.1 % Monocytes (%) (Auto) 10.0 % Eosinophils (%) (Auto) 1.4 % Basophils (%) (Auto) 0.6 % Neutrophils # (Auto) 5.7 TH/MM3 Lymphocytes # (Auto) 1.8 TH/MM3 Monocytes # (Auto) 0.9 TH/MM3 Eosinophils # (Auto) 0.1 TH/MM3 Basophils # (Auto) 0.0 TH/MM3 CBC Comment DIFF FINAL Differential Comment Imaging Last Impressions Hip and Pelvis X-Ray 02/18/18 1132 Signed Impressions: Service Date/Time: Sunday, February 18, 2018 12:59 - CONCLUSION: Postoperative changes left hip arthroplasty. Pedrito Knight MD IVC Filter Placement X-Ray 02/18/18 0000 Signed Impressions: Service Date/Time: Sunday, February 18, 2018 08:09 - CONCLUSION: Uncomplicated inferior vena cava filter placement as above. Tavo Cavazos MD Head CT 02/18/18 0000 Signed Impressions: Service Date/Time: Sunday, February 18, 2018 16:08 - CONCLUSION: Normal examination for a patient of this age. Pedrito Knight MD Femur X-Ray 02/18/18 0000 Signed Impressions: Service Date/Time: Sunday, February 18, 2018 11:17 - CONCLUSION: Fluoroscopic image during left hip arthroplasty including intra-medullary amor left femur. Abram Craig MD Objective Remarks GENERAL: This is a well-nourished, well-developed patient, in acute distress CARDIOVASCULAR: Regular rate and rhythm RESPIRATORY: Clear to auscultation. Breath sounds equal bilaterally. GASTROINTESTINAL: Abdomen soft, non-tender, nondistended. Normal active bowel sounds MUSCULOSKELETAL: Extremities without clubbing, cyanosis, or edema. Post-op dressing dry and intact NEURO: Alert & Oriented x4 to person, place, time, situation. Moves all ext x4 Procedures removal of the deep hardware and conversion to a left hip replacement today by Dr. Owusu, 02/18/18 A/P Assessment and Plan Patient is an 78-year-old female who underwent revision of a displaced left femoral neck fracture and retained hardware of left hip she underwent removal of the deep hardware and conversion to a left hip replacement today by Dr. Owusu, 02/18/18. After the procedure, patient was noted to have one eye that was quite dilated and one that was normal patient. Patient has dilated right pupil secondary to eyedrops and recent glaucoma surgery Patient had a IVC filter placed 02/18/18 due to a lower extremity DVT Patient also on Xarelto. Patient sitting up in chair reports feeling fatigued, hgb 7.6 (02/19) -> 9.4 () Status post left femoral neck fracture and repair with revision and removal of hardware and conversion to left hemiarthroplasty today Pain control per orthopedic Recent DVT status post IVC filter 02/18/18 start Xarelto 02/19 Uneven pupils Also followed by Neurology. Per neurology patient has dilated right pupil secondary to eyedrops and recent glaucoma surgery CT scan of head Normal examination for a patient of this age History of glaucoma History of cataract surgery on the right GERD by history which is diet controlled Hypertension not on any current medications Post-op anemia- resolved hgb 7.6 (02/19) -> 9.4 (02/20) s/p transfuse 1 unit PRBC (02/19) Lasix 20 mg IV after transfusion Patient medically stable for DC Supervising physician Libertad Martínez February 20, 2018 15:54
[2018-02-20] MEDS: LATANOPROST 0.005% OPHT SOLN 2.5 ML BTL LEFT EYE SCH (20:54)
[2018-02-21 03:30] VITALS: BP 138/63; PULSE 107; RESP 18; TEMP 97.1; O2SAT 95
[2018-02-21] MEDS: ACETAMINOPHEN/HYDROcodone 325 MG/7.5 MG TAB PO PRN (03:31)
--- NOTE | 2018-02-21 06:40 | PD.ORT.PN ---
Subjective Subjective Remarks POD 3 s/p removal of IMN with conversion to revision hemiarthroplasty doing well. pain controlled. states pain minimal and out of bed with therapy. Objective Vitals Vital Signs Date Time Temp Pulse Resp B/P (MAP) Pulse Ox O2 Delivery O2 Flow Rate FiO2 02/21/18 03:30 97.1 107 18 138/63 (88) 95 02/20/18 23:45 98.0 87 18 132/58 (82) 93 02/20/18 22:13 18 02/20/18 21:10 21 02/20/18 16:00 97.0 87 16 135/64 (87) 93 02/20/18 12:42 18 02/20/18 12:00 97.7 83 16 121/58 (79) 99 02/20/18 08:30 95 21 02/20/18 08:00 98.4 95 16 122/58 (79) 98 02/20/18 07:00 98.2 95 18 122/58 (79) 97 I/O 02/20/18 02/20/18 02/20/18 02/21/18 02/21/18 02/21/18 06:59 14:59 22:59 06:59 14:59 22:59 Intake Total 450 ml 600 ml 420 ml Output Total 600 ml Balance -150 ml 600 ml 420 ml Intake Oral 600 ml 420 ml Packed Cells 400 ml Blood Product IV Normal Saline Flush 50 ml Output Urine Total 600 ml # Voids 3 2 # Bowel Movements 0 Result Diagram: 02/20/18 1249 02/19/18 0550 Imaging Last 24 hours Impressions IVC Filter Placement X-Ray 02/18/18 0000 Signed Impressions: Service Date/Time: Sunday, February 18, 2018 08:09 - CONCLUSION: Uncomplicated inferior vena cava filter placement as above. Tavo Cavazos MD Objective Remarks LLE: dressings clean and dry. intact. +CKS. dressing removed and incision visualized. clean and dry. healing well. no drainage. Assessment & Plan Assessment and Plan 1) Left Periprosthetic Femoral Neck Fx s/p removal of IMN with conversion to revision stem hemiarthroplasty - POD 3 -50%WB -posterior hip precautions -knee brace while in bed -DVT prophylaxis. patient has diagnosed DVT and IVC filter placed 02/18/18. restart home dose Xarelto 15mg -daily dressing changes with primapore on POD 2; perneo surgical mesh tape to remain on incision at all times -orthopedically stable for discharge -CM for rehab placement -f/u with Umer or PA in 2 weeks Gurpreet Ny/First Malik LOPEZ February 21, 2018 06:40
--- NOTE | 2018-02-21 06:45 | HHI.DS ---
Discharge Summary Admission Date February 18, 2018 at 05:34 Discharge Date: February 21, 2018 Admitting Diagnosis Left periprosthetic femoral neck fracture Diagnosis: (1) Closed left hip fracture Diagnosis: Principal ICD Codes: S72.002A - Fracture of unspecified part of neck of left femur, initial encounter for closed fracture Status: Acute Procedures Removal of intramedullary nail left femur with conversion to left revision stem hemiarthroplasty CBC/BMP: 02/20/18 1249 02/19/18 0550 Significant Findings Laboratory Tests Test 02/18/18 12:30 02/18/18 13:20 02/18/18 19:32 02/19/18 05:50 Hemoglobin 10.1 GM/DL (11.6-15.3) 9.0 GM/DL (11.6-15.3) 7.6 GM/DL (11.6-15.3) Hematocrit 30.0 % (35.0-46.0) 26.9 % (35.0-46.0) 22.3 % (35.0-46.0) Random Glucose 137 MG/DL (74-106) 107 MG/DL (74-106) Calcium Level 7.7 MG/DL (8.5-10.1) 7.7 MG/DL (8.5-10.1) Chloride Level 108 MEQ/L (98-107) Red Blood Count 2.87 MIL/MM3 (4.00-5.30) 2.37 MIL/MM3 (4.00-5.30) Neutrophils (%) (Auto) 78.0 % (16.0-70.0) Monocytes (%) (Auto) 9.1 % (0.0-8.0) 10.2 % (0.0-8.0) Total Protein 5.0 GM/DL (6.4-8.2) Albumin 2.7 GM/DL (3.4-5.0) Alkaline Phosphatase 38 U/L (45-117) Estimat Glomerular Filtration Rate 71 ML/MIN (>89) Test 02/20/18 12:49 Red Blood Count 2.99 MIL/MM3 (4.00-5.30) Hemoglobin 9.4 GM/DL (11.6-15.3) Hematocrit 27.4 % (35.0-46.0) Monocytes (%) (Auto) 10.0 % (0.0-8.0) PE at Discharge LLE: dressings clean and dry. intact. +CKS. dressing removed and incision visualized. clean and dry. healing well. no drainage. 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 She had previously had a left femoral shaft fracture years ago that was fixed with intramedullary nailing. Her fracture developed over time proximal to the nail. She denied any history of falls or accident. She is uncertain on how the fracture occurred. She has recently been diagnosed with a DVT of her left leg. Due to this, she was taken for an IVC filter placement the morning of them prior to her surgery. She tolerated filter placement well. She was taken to the operating room for her left hip. She tolerated the procedure well. Upon awaking from anesthesia it was noted that her right pupil was dilated more than her left. Neurosurgery was consulted. It was discovered that she had recently had a procedure done for glaucoma and was using eyedrops to help dilate that people. By postop day 1 she was cognitively present and was out of bed with therapy. By postop day 4 her pain was well controlled, she was hemodynamically stable, she was ambulatory with therapy. She was fit for discharge to shelter facility. She will be discharged today and remain partial weightbearing on the left leg. She will daily dressing changes with a Primapore dressing. She will wear her knee brace while in bed and observe posterior hip precautions. She will follow-up with Dr. Owusu or his PA in 2 weeks Pt Condition on Discharge: Fair Discharge Disposition: Discharge to SNF Discharge Instructions Diet Instructions: As Tolerated, No Restrictions Activities You Can Perform: Partial Weight Bearing Follow up Referrals: Orthopedics - 2 Weeks @ [facility] with Eugene Owusu MD New Medications: Hydrocodone-Acetaminophen (Hydrocodone-Acetaminophen) 10-325 mg Tab 1 TAB PO Q4H PRN for PAIN, #60 TAB 0 Refills Continued Medications: Acetaminophen-Codeine (Tylenol-Codeine #3) 300-30 mg Tab 1 TAB PO Q6H PRN for PAIN, #24 TAB 0 Refills Atropine Opth Drops (Atropine Opth Drops) 1% Soln 1 DROP RIGHT EYE DAILY for Infection, #2 ML 0 Refills Calcium Ascorbate (Calcium Ascorbate) 500 Mg Tab 500 MG PO DAILY for Calcium Supplement, TAB 0 Refills Cholecalciferol (Vitamin D3) 5,000 Unit Cap 5000 UNITS PO DAILY for Nutritional Supplement, #30 CAP 0 Refills Rivaroxaban (Xarelto) 15 Mg Tab 15 MG PO Q12HR for Blood Clot Prevention for 30 Days, TAB 0 Refills (This prescription has been renewed) Timolol Maleate (Ophth) (Timolol Maleate) 0.25 % Lesvia 1 DROP LEFT EYE BID Travoprost Opth Drops (Travatan Z Opth Drops) 0.004 % Soln 1 DROP LEFT EYE HS for Glaucoma, #1 BOTTLE 0 Refills Gurpreet Ny/Hand Braille Transcriber JESSICA February 21, 2018 06:45
[2018-02-21 08:00] VITALS: BP 103/66; PULSE 96; RESP 16; TEMP 98.1; O2SAT 96
[2018-02-21] MEDS: DOCUSATE SODIUM 100 MG CAP PO SCH (08:30)
[2018-02-21] MEDS: TIMOLOL MALEATE 0.25% OPHT SOLN 5 ML BTL LEFT EYE SCH (08:31)
[2018-02-21] MEDS: ATROPINE SULFATE 1% OPHT SOLN 5 ML BTL RIGHT EYE SCH (08:31)
[2018-02-21] MEDS: RIVAROXABAN 10 MG TAB PO SCH (11:13)
[2018-02-21] MEDS ORDERED: MAGNESIUM HYDROXIDE SUSP 30 ML CUP PO PRN (11:15)
--- NOTE | 2018-02-21 12:46 | HHI.PR ---
Subjective Remarks Is scheduled to be discharged later today to go to [facility]F Denies any new complaints Discussed with RN and patient Paperwork has been done Objective Vitals Vital Signs Date Time Temp Pulse Resp B/P (MAP) Pulse Ox O2 Delivery O2 Flow Rate FiO2 02/21/18 08:00 96 Room Air 02/21/18 08:00 98.1 96 16 103/66 (78) 96 02/21/18 03:30 97.1 107 18 138/63 (88) 95 02/20/18 23:45 98.0 87 18 132/58 (82) 93 02/20/18 22:13 18 02/20/18 21:10 21 02/20/18 16:00 97.0 87 16 135/64 (87) 93 I/O 02/20/18 02/20/18 02/20/18 02/21/18 02/21/18 02/21/18 07:00 15:00 23:00 07:00 15:00 23:00 Intake Total 450 ml 600 ml 420 ml Output Total 600 ml 150 ml Balance -150 ml 600 ml 420 ml -150 ml Intake Oral 600 ml 420 ml Packed Cells 400 ml Blood Product IV Normal Saline Flush 50 ml Output Urine Total 600 ml 150 ml # Voids 3 2 # Bowel Movements 0 Result Diagram: 02/20/18 1249 02/19/18 0550 Other Results Laboratory Tests Test 02/18/18 13:20 02/18/18 19:32 02/19/18 05:50 02/20/18 12:49 Blood Urea Nitrogen 16 MG/DL 17 MG/DL Creatinine 0.57 MG/DL 0.78 MG/DL Random Glucose 137 MG/DL 107 MG/DL Calcium Level 7.7 MG/DL 7.7 MG/DL Sodium Level 141 MEQ/L 138 MEQ/L Potassium Level 4.0 MEQ/L 4.3 MEQ/L Chloride Level 108 MEQ/L 103 MEQ/L Carbon Dioxide Level 26.2 MEQ/L 26.6 MEQ/L Anion Gap 7 MEQ/L 8 MEQ/L Estimat Glomerular Filtration Rate 102 ML/MIN 71 ML/MIN Ammonia 32 MCMOL/L White Blood Count 7.9 TH/MM3 6.0 TH/MM3 8.6 TH/MM3 Red Blood Count 2.87 MIL/MM3 2.37 MIL/MM3 2.99 MIL/MM3 Hemoglobin 9.0 GM/DL 7.6 GM/DL 9.4 GM/DL Hematocrit 26.9 % 22.3 % 27.4 % Mean Corpuscular Volume 93.9 FL 94.2 FL 91.6 FL Mean Corpuscular Hemoglobin 31.3 PG 32.2 PG 31.5 PG Mean Corpuscular Hemoglobin Concent 33.4 % 34.1 % 34.4 % Red Cell Distribution Width 13.8 % 13.6 % 15.2 % Platelet Count 279 TH/MM3 235 TH/MM3 238 TH/MM3 Mean Platelet Volume 7.7 FL 7.7 FL 7.9 FL Neutrophils (%) (Auto) 78.0 % 56.5 % 66.9 % Lymphocytes (%) (Auto) 12.5 % 31.9 % 21.1 % Monocytes (%) (Auto) 9.1 % 10.2 % 10.0 % Eosinophils (%) (Auto) 0.0 % 0.8 % 1.4 % Basophils (%) (Auto) 0.4 % 0.6 % 0.6 % Neutrophils # (Auto) 6.2 TH/MM3 3.4 TH/MM3 5.7 TH/MM3 Lymphocytes # (Auto) 1.0 TH/MM3 1.9 TH/MM3 1.8 TH/MM3 Monocytes # (Auto) 0.7 TH/MM3 0.6 TH/MM3 0.9 TH/MM3 Eosinophils # (Auto) 0.0 TH/MM3 0.0 TH/MM3 0.1 TH/MM3 Basophils # (Auto) 0.0 TH/MM3 0.0 TH/MM3 0.0 TH/MM3 CBC Comment DIFF FINAL DIFF FINAL DIFF FINAL Differential Comment Total Protein 5.0 GM/DL Albumin 2.7 GM/DL Phosphorus Level 3.4 MG/DL Magnesium Level 1.8 MG/DL Alkaline Phosphatase 38 U/L Aspartate Amino Transf (AST/SGOT) 22 U/L Alanine Aminotransferase (ALT/SGPT) 13 U/L Total Bilirubin 0.6 MG/DL Hemoglobin A1c 5.3 % Free Thyroxine 1.39 NG/DL Thyroid Stimulating Hormone 3rd Gen 3.190 uIU/ML Imaging Last Impressions Hip and Pelvis X-Ray 02/18/18 1132 Signed Impressions: Service Date/Time: Sunday, February 18, 2018 12:59 - CONCLUSION: Postoperative changes left hip arthroplasty. Pedrito Knight MD IVC Filter Placement X-Ray 02/18/18 0000 Signed Impressions: Service Date/Time: Sunday, February 18, 2018 08:09 - CONCLUSION: Uncomplicated inferior vena cava filter placement as above. Tavo Cavazos MD Head CT 02/18/18 0000 Signed Impressions: Service Date/Time: Sunday, February 18, 2018 16:08 - CONCLUSION: Normal examination for a patient of this age. Pedrito Knight MD Femur X-Ray 02/18/18 0000 Signed Impressions: Service Date/Time: Sunday, February 18, 2018 11:17 - CONCLUSION: Fluoroscopic image during left hip arthroplasty including intra-medullary amor left femur. Abram Craig MD Objective Remarks GENERAL: Awake alert and oriented 3 talkative and cooperative SKIN: Warm and dry. HEAD: Atraumatic. Normocephalic. EYES: Pupils not equal and round. No scleral icterus. No injection or drainage. Right eye with dilated pupil ENT: No nasal bleeding or discharge. Mucous membranes pink and moist. NECK: Trachea midline. No JVD. CARDIOVASCULAR: Regular rate and rhythm. S1-S2 no S3 or S4 RESPIRATORY: No accessory muscle use. Clear to auscultation. Breath sounds equal bilaterally. GASTROINTESTINAL: Abdomen soft, non-tender, nondistended. Hepatic and splenic margins not palpable. MUSCULOSKELETAL: Extremities without clubbing, cyanosis, or edema. No obvious deformities. NEUROLOGICAL: Awake and alert. No obvious cranial nerve deficits. Motor grossly within normal limits. 4 out of 5 muscle strength in the arms and legs. Normal speech. PSYCHIATRIC: Appropriate mood and affect; insight and judgment normal. Procedures removal of the deep hardware and conversion to a left hip replacement today by Dr. Owusu, 02/18/18 IVC filter placed for history of DVT Medications and IVs Current Medications Lactated Ringer's 1,000 ml @ 30 mls/hr Q24H PRN IV SEE LABEL COMMENTS Last administered on 02/18/18at 06:43; Start 02/18/18 at 06:30; Stop 02/21/18 at 06:29 ; Status DC Sodium Chloride 500 ml @ 30 mls/hr [id number] PRN IV SEE LABEL COMMENTS; Start at 06:30; Stop 02/21/18 at 06:29; Status DC Metoprolol Tartrate (Lopressor) 25 mg QUALITY OFFICER PRN PO SEE LABEL COMMENTS; Start 02/18/18 at 06:30; Stop 02/21/18 at 06:29; Status DC Povidone Iodine (Betadine 5% Antisepsis Kit) 1 applic QUALITY OFFICER PRN EACH NARE SEE LABEL COMMENTS Last administered on 02/18/18at 06:42; Start 02/18/18 at 06:30 ; Stop 02/21/18 at 06:29; Status DC Chlorhexidine Gluconate (Chlorhexidine 2% Cloth) 3 pack QUALITY OFFICER PRN TOPICAL SEE LABEL COMMENTS Last administered on 02/18/18at 06:42; Start 02/18/18 at 06:30 ; Stop 02/21/18 at 06:29; Status DC Chlorhexidine Gluconate (Hibiclens 4% Top Soln) 1 applic ONCE TOPICAL Last administered on 02/18/18at 06:43; Start 02/18/18 at 06:30; Stop 02/21/18 at 06:29 ; Status DC Cefazolin Sodium/ Dextrose 50 ml @ 100 mls/hr QUALITY OFFICER IV ; Start 02/18/18 at 06:30; Stop 02/18/18 at 21:00; Status DC Vancomycin HCl 1000 mg/Sodium Chloride 250 ml @ 250 mls/hr QUALITY OFFICER IV ; Start 02/18/18 at 06:30; Stop 02/18/18 at 21:00; Status DC Fentanyl Citrate (fentaNYL INJ) 100 mcg STK-MED ONCE .ROUTE Last administered on 02/18/18at 08:05; Start 02/18/18 at 07:31; Stop 02/18/18 at 07:32; Status DC Midazolam HCl (Versed Inj) 2 mg STK-MED ONCE .ROUTE Last administered on at 08:05; Start 02/18/18 at 07:32; Stop 02/18/18 at 07:33; Status DC Iohexol (Omnipaque 350 Inj) 15 ml STK-MED ONCE IVCONTRAST Last administered on 02/18/18 08:25; Start 02/18/18 at 08:25; Stop 02/18/18 at 08:26; Status DC Vancomycin HCl (Vancomycin Inj) 1,000 mg STK-MED ONCE .ROUTE Last administered on 02/18/18at 09:28; Start 02/18/18 at 09:06; Stop 02/18/18 at 09:07; Status DC Cefazolin Sodium (Ancef Inj) 1,000 mg STK-MED ONCE .ROUTE Last administered on 02/18/18at 09:27; Start 02/18/18 at 09:07; Stop 02/18/18 at 09:08; Status DC Gentamicin Sulfate (Gentamicin Inj) 240 mg STK-MED ONCE .ROUTE Last administered on 02/18/18at 10:00; Start 02/18/18 at 09:08; Stop 02/18/18 at 09:09 ; Status DC Vancomycin HCl (Vancomycin Inj) 1,000 mg STK-MED ONCE .ROUTE ; Start 02/18/18 at 09:08; Stop 02/18/18 at 09:09; Status DC Heparin Sodium (Porcine) (Heparin Inj) 30,000 units STK-MED ONCE .ROUTE ; Start 02/18/18 at 09:08; Stop 02/18/18 at 09:09; Status DC Tranexamic Acid 710 mg/Sodium Chloride 107.1 ml @ 200 mls/hr ONCE ONCE IV ; Start 02/18/18 at 10:00; Stop 02/18/18 at 10:32; Status DC Naloxone HCl (Narcan Inj) 0.4 mg UNSCH PRN IV PUSH RESPIRATORY RATE LESS THAN 10; Start 02/18/18 at 11:45 Diphenhydramine HCl (Benadryl) 25 mg Q6H PRN PO ITCHING; Start 02/18/18 at 11: 45 Cefazolin Sodium/ Dextrose 50 ml @ 100 mls/hr Q6H IV ; Start 02/18/18 at 15:00 ; Stop 02/19/18 at 03:29; Status Cancel Miscellaneous Information (Misc Post-op Orders (for Pharmacy)) STAT ONCE XX ; Start 02/18/18 at 11:45; Stop 02/18/18 at 11:46; Status DC Rivaroxaban (Xarelto) 10 mg Q24H PO Last administered on 02/21/18at 11:13; Start 02/19/18 at 11:30 Acetaminophen/ Hydrocodone Bitart ([place] 7.5-325 Mg) 1 tab Q3H PRN PO PAIN 3< 6 Last administered on 02/21/18at 03:31; Start 02/18/18 at 15:00 Acetaminophen/ Hydrocodone Bitart ([place] 10-325 Mg) 1 tab Q3H PRN PO PAIN 6<10 Last administered on 02/20/18 11:42; Start 02/18/18 at 15:00 Ondansetron HCl (Zofran Odt) 4 mg Q6H PRN PO NAUSEA OR VOMITING Last administered on 02/18/18 19:38; Start 02/18/18 at 11:45 Docusate Sodium (Colace) 100 mg BID PO Last administered on 02/21/18 08:30; Start 02/19/18 at 21:00 Vancomycin HCl 1000 mg/Sodium Chloride 250 ml @ 250 mls/hr Q12H IV Last administered on 02/18/18 22:37; Start 02/18/18 at 22:00; Stop 02/18/18 at 22:59 ; Status DC Morphine Sulfate (*morphine INJ PERIprocedure ONLY) 4 mg STK-MED ONCE .ROUTE Last administered on 02/18/18 12:37; Start 02/18/18 at 12:37; Stop 02/18/18 at 12:38; Status DC Fentanyl Citrate (fentaNYL INJ) 100 mcg STK-MED ONCE .ROUTE ; Start 02/18/18 at 12:49; Stop 02/18/18 at 12:50; Status DC Fentanyl Citrate (fentaNYL INJ) 100 mcg STK-MED ONCE .ROUTE ; Start 02/18/18 at 12:49; Stop 02/18/18 at 12:50; Status DC Morphine Sulfate (*morphine INJ PERIprocedure ONLY) 4 mg STK-MED ONCE .ROUTE Last administered on 02/18/18at 12:53; Start 02/18/18 at 12:53; Stop 02/18/18 at 12:54; Status DC Miscellaneous Information ([facility] [place] [facility]) ALL NURSING DEPARTME... UNSCH PRN .XX SEE LABEL COMMENTS; Start 02/18/18 at 12:30; Stop 02/19/18 at 12: 29; Status DC Cefazolin Sodium 2000 mg/Sodium Chloride 120 ml @ 240 mls/hr Q6H IV Last administered on 02/19/18 04:08; Start 02/18/18 at 16:00; Stop 02/19/18 at 04:29 ; Status DC Sodium Chloride 250 ml @ 15 mls/hr ONCE ONCE IV Last administered on at 20:14; Start 02/19/18 at 10:45; Stop 02/20/18 at 03:24; Status DC Furosemide (Lasix Inj) 20 mg ONCE ONCE IV PUSH Last administered on 02/19/18at 11:30; Start 02/19/18 at 10:45; Stop 02/19/18 at 10:46; Status DC Atropine Sulfate (Atropine 1% Opth Soln) 1 drop DAILY RIGHT EYE ; Start at 13:00; Status Cancel Timolol Maleate (Timoptic 0.25% Opth Soln) 1 drop BID LEFT EYE Last administered on 02/21/18at 08:31; Start 02/19/18 at 11:15 Latanoprost (Xalatan 0.005% Opth Soln) 1 drop HS LEFT EYE Last administered on 02/20/18at 20:54; Start 02/19/18 at 21:00 Atropine Sulfate (Isopto Atropine 1% Opth Soln) 1 drop DAILY RIGHT EYE Last administered on 02/21/18at 08:31; Start 02/19/18 at 12:00 Magnesium Hydroxide (Milk Of Magnesia Liq) 30 ml DAILY PRN PO CONSTIPATION; Start 02/21/18 at 11:15 Lidocaine HCl (Xylocaine-Mpf 1% Inj) 5 ml STK-MED ONCE OTHER ; Start 02/18/18 at 12:00; Stop 02/21/18 at 11:12; Status DC Rocuronium [place] (Zemuron Inj) 50 mg STK-MED ONCE IV PUSH ; Start 02/18/18 at 12:00; Stop 02/21/18 at 11:12; Status DC Neostigmine Methylsulfate (Prostigmine Inj) 5 mg STK-MED ONCE IV PUSH ; Start at 12:00; Stop 02/21/18 at 11:12; Status DC Glycopyrrolate (Robinul Inj) 1 mg STK-MED ONCE IV PUSH ; Start 02/18/18 at 12:00 ; Stop 02/21/18 at 11:12; Status DC Phenylephrine HCl (Neosynephrine/ NS 1000 Mcg/10ml Syr) 2,000 mcg STK-MED ONCE IV ; Start 02/18/18 at 12:00; Stop 02/21/18 at 11:12; Status DC Ephedrine Sulfate (ePHEDrine/NS 25 MG/5 ML SYR) 25 mg STK-MED ONCE IV ; Start at 12:00; Stop 02/21/18 at 11:13; Status DC Metoprolol Tartrate (Lopressor Inj) 5 mg STK-MED ONCE IV ; Start 02/18/18 at 12: 00; Stop 02/21/18 at 11:13; Status DC Ondansetron HCl (Zofran Inj) 4 mg STK-MED ONCE IV PUSH ; Start 02/18/18 at 12:00 ; Stop 02/21/18 at 11:13; Status DC Propofol (Diprivan 200 Mg/20 ml Inj) 200 mg STK-MED ONCE IV ; Start 02/18/18 at 12:00; Stop 02/21/18 at 11:13; Status DC A/P Assessment and Plan Patient is an 78-year-old female who underwent revision of a displaced left femoral neck fracture and retained hardware of left hip she underwent removal of the deep hardware and conversion to a left hip replacement today by Dr. Owusu, 02/18/18. After the procedure, patient was noted to have one eye that was quite dilated and one that was normal patient. Patient has dilated right pupil secondary to eyedrops and recent glaucoma surgery Patient had a IVC filter placed 02/18/18 due to a lower extremity DVT Patient also on Xarelto. Patient sitting up in chair reports feeling fatigued, hgb 7.6 (02/19) -> 9.4 () Status post left femoral neck fracture and repair with revision and removal of hardware and conversion to left hemiarthroplasty today Pain control per orthopedic Recent DVT status post IVC filter 02/18/18 start Xarelto 02/19 Uneven pupils Also followed by Neurology. Per neurology patient has dilated right pupil secondary to eyedrops and recent glaucoma surgery CT scan of head Normal examination for a patient of this age History of glaucoma History of cataract surgery on the right GERD by history which is diet controlled Hypertension not on any current medications Post-op anemia- resolved hgb 7.6 (02/19) -> 9.4 (02/20) s/p transfuse 1 unit PRBC (02/19) Lasix 20 mg IV after transfusion Patient has acute posthemorrhagic anemia in the setting of a hemoglobin of 10.1 and hematocrit of 30.0 down to 7.6 and 22.3 with blood loss of 300 mL's and surgery treated with serial labs and transfusion Patient medically stable for DC Discharge Planning Medically cleared for discharge Ja Banerjee DO February 21, 2018 12:46
[2018-02-21] MEDS ORDERED: SENN187 PO (12:48)
== END 2018-02-21 13:00 | DRG 469 ==
LOC: HSDI 05:34 → N06B 13:41
PROVIDERS: ADMIT Orthopaedic Surgery Orthopaedic Trauma; ATTEND Orthopaedic Surgery Orthopaedic Trauma
PROC: 0QP704Z Removal of Internal Fixation Device from Left Upper Femur, Open Approach (ICD-10-PCS; 2018-02-18)
PROC: 06H03DZ Insertion of Intraluminal Device into Inferior Vena Cava, Percutaneous Approach (ICD-10-PCS; 2018-02-18)
PROC: 0SRB01Z Replacement of Left Hip Joint with Metal Synthetic Substitute, Open Approach (ICD-10-PCS; principal; 2018-02-18 09:00)
PROC: 30233N1 Transfusion of Nonautologous Red Blood Cells into Peripheral Vein, Percutaneous Approach (ICD-10-PCS; 2018-02-19)
DX: S72.002G Fracture of unspecified part of neck of left femur, subsequent encounter for closed fracture with delayed healing (principal); G93.40 Encephalopathy, unspecified; I82.402 Acute embolism and thrombosis of unspecified deep veins of left lower extremity; D62 Acute posthemorrhagic anemia; I10 Essential (primary) hypertension; K21.9 Gastro-esophageal reflux disease without esophagitis; H57.04 Mydriasis; H40.9 Unspecified glaucoma; Z79.01 Long term (current) use of anticoagulants; Z86.718 Personal history of other venous thrombosis and embolism; Z88.5 Allergy status to narcotic agent; Z88.6 Allergy status to analgesic agent
CPT/HCPCS: 36430; 37191; 70450; 73502; 73551; 76000; 80048; 80053; 82140; 83036; 83735; 84100; 84439; 84443; 85014; 85018; 85025; 86850; 86900; 86901; 86920; 88304; 88311; 95819; 99152; 99153; C1769; C1776; C1880; C1887; J0690; J1580; J1644; J1940; J2250; J2270; J2370; J2405; J2710; J3010; J3370; J7050; J7120; L1830; P9016; Q9967